=== PATIENT | male | born 1970 | race Caucasian/White ===

== ENCOUNTER 2019-01-10 08:38 | Inpatient (IN) | payer BC ==
[~2019-01-10] VITALS: Ht 182.9 cm; Wt 100.4 kg
[2019-01-10 09:01] VITALS: BP 177/119
[2019-01-10 09:36] LABS: BASO % 0 % (0-3); EOS % 0 % (0-3); HEMATOCRIT 43.2 % (39.0-53.0); HEMOGLOBIN 14.3 g/dL (13.0-17.5); LYMPH % 9 % (24-48); MEAN CORPUSCULAR HEMOGLOBIN 30 pg (25-35); MEAN CORPUSCULAR HGB CONC 33 g/dL (31-37); MEAN CORPUSCULAR VOLUME 90 fL (79-100); MONO # 0.5 x10^3/uL (0.0-1.1); MONO % 5 % (0-9); NEUT # 9.1 x10^3uL (1.8-7.7); NEUT % 86 % (31-73); PLATELET COUNT 244 x10^3/uL (140-400); RED BLOOD COUNT 4.79 x10^6/uL (4.30-5.70); RED CELL DISTRIBUTION WIDTH 14.8 % (11.5-14.5); WHITE BLOOD COUNT 10.6 x10^3/uL (4.0-11.0)
[2019-01-10 09:50] LABS: ALBUMIN 3.6 g/dL (3.4-5.0); ALBUMIN/GLOBULIN RATIO 1.5 (1.0-1.7); CALCIUM 8.5 mg/dL (8.5-10.1); CREATININE 1.1 mg/dL (0.7-1.3); GFR 70.9; TOTAL BILIRUBIN 0.8 mg/dL (0.2-1.0)
[2019-01-10] MEDS ORDERED: ENOXAPARIN 40 MG/0.4 ML SYRINGE. SQ SCH (10:00)
--- NOTE | 2019-01-10 10:05 | EKG ---
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
[2019-01-10] MEDS ORDERED: IOHEXOL 350 MG/ML 100 ML VIAL. IV ONE (10:15)
[2019-01-10 10:17] LABS: INFLUENZA A PATIENT NEGATIVE (NEGATIVE); INFLUENZA B PATIENT NEGATIVE (NEGATIVE)
[2019-01-10 11:36] VITALS: BP 164/124
--- NOTE | 2019-01-10 11:37 | RAD ---
CT ANGIOGRAPHY CHEST INDICATION: Dyspnea, elevated d-dimer. Comparison: None. TECHNIQUE: Following the uneventful administration of intravenous contrast, 100 cc Omnipaque 350, axial CT sections were obtained through the lungs and upper abdomen. Multiplanar reconstructions and MIP images were obtained. RS compliance statement: One or more of the following individualized dose reduction techniques were utilized for this examination: 1. Automated exposure control 2. Adjustment of the mA and/or kV according to patient size 3. Use of iterative reconstruction technique FINDINGS: Pulmonary vasculature: No evidence of pulmonary thromboembolic disease. Pulmonary trunk measures 30 mm in diameter. Lungs and Airways: Bibasilar dependent, subsegmental, and relaxation atelectasis. Symmetric interlobular septal thickening. No mass or consolidation. No abnormality of the central airways. Pleura: Moderate right greater than left pleural effusions. Heart and Mediastinum: The visualized thyroid is normal in size and attenuation. No axillary or supraclavicular lymphadenopathy. No mediastinal, hilar or retrocrural lymphadenopathy. Cardiomegaly. No pericardial effusion. The great vessels of the thorax are normal. Abdomen: Limited images through the upper abdomen show no abnormality of the visualized organs. Bones and Soft Tissues: The visualized bones and chest wall soft tissues are within normal limits. IMPRESSION: 1. No evidence of pulmonary thromboembolic disease. 2. Cardiomegaly and interstitial edema. 3. Moderate bilateral pleural effusions, slightly larger on the right. Electronically signed by: Jatin Russo MD (01/10/2019 11:34 AM) [facility]
[2019-01-10] MEDS: FUROSEMIDE 20 MG/2 ML VIAL IVP SCH (11:48)
[2019-01-10] MEDS: hydrALAZINE 25 MG TABLET PO SCH ×3 (11:49→19:46)
[2019-01-10 14:00] LABS: BACTERIA,URINE 0 /HPF (0-FEW); BILIRUBIN,URINE NEG (NEG); CLARITY,URINE CLEAR; COLOR,URINE AMBER; GLUCOSE,URINE NEG (NEG); NITRITE,URINE NEG (NEG); SQUAMOUS EPITHELIAL CELL,UR OCC /LPF; UROBILINOGEN,URINE 0.2 mg/dL (0.2 mg/dL)
[2019-01-10] MEDS: CARVEDILOL 3.125 MG TABLET PO SCH ×2 (14:02→17:00)
[2019-01-10 14:13] LABS: THYROID STIM HORMONE (TSH) 2.746 uIU/mL (0.358-3.740)
[2019-01-10 15:35] VITALS: BP 157/112
[2019-01-10] MEDS ORDERED: FLU VAX QS 2019-20 (36MOS+)/PF 0.5 ML SYRINGE. VAX IM ONE (16:00)
[2019-01-10] MEDS ORDERED: Influenza vaccine per PROTOCOL. MC ONE (16:00)
--- NOTE | 2019-01-10 16:11 | CARD ---
MR#: [id number] Date of Study: 01/10/2019 Ordering Physician: ANIYA HIGHTOWER, Referring Physician: ANIYA HIGHTOWER, Tech: Monica Goss RDCS APPROVED REPORT EXAM: Two-dimensional and M-mode echocardiogram with Doppler and color Doppler. Other Information Quality : GoodHR: 95bpm Rhythm : NSR INDICATION Dyspnea 2D DIMENSIONS RVDd3.4 (2.9-3.5cm)IVSd1.0 (0.7-1.1cm) Aortic Root(2D)3.6 (2.0-3.7cm)LVDd6.7 (3.9-5.9cm) PWd1.3 (0.7-1.1cm)LVDs6.3 (2.5-4.0cm) FS (%) 5.2 %SV26.1 ml LVEF(%)11.4 (>50%) M-Mode DIMENSIONS Left Atrium(MM)5.03 (2.5-4.0cm)Aortic Root3.62 (2.2-3.7cm) Aortic Valve AoV Peak Ganesh.108.4cm/sAoV VTI14.1cm AO Peak GR.4.7mmHgAO Mean GR.3mmHg JONY (VTI)3.07cm2 Mitral Valve MV E Bockaemr10.5cm/sMV E Peak Gr.81mmHg MV DECEL [id number] A Jltkrcwj38.4cm/s E/A Ratio3.3MV A Xkqkogpr33bd Tricuspid Valve TR P. Jwqgpepo086oi/sRAP FGCQDCVY44viKb TR Peak Gr.81joKaZWMR76jmMs LEFT VENTRICLE The Left Ventricle is moderately dilated. There is normal left ventricular wall thickness. The left v etricular systolic function is severely impaired. The Ejection Fraction is 10-15%. There is global hy pokinesis of the left ventricle. Transmitral Doppler flow pattern is Grade III-reversible restrictive diastolic dysfunction. RIGHT VENTRICLE The right ventricle is normal size. There is normal right ventricular wall thickness. Systolic functi on is mildly reduced. ATRIA The left atrium is moderately dilated. The right atrium is mildly dilated. The interatrial septum is intact with no evidence for an atrial septal defect or patent foramen ovale as noted on 2-D or Dopple r imaging. AORTIC VALVE The aortic valve is normal in structure and function. The aortic valve is trileaflet. Doppler and Col or Flow revealed trace aortic regurgitation. There is no significant aortic valvular stenosis. There is no aortic valvular vegetation. MITRAL VALVE The mitral valve is normal in structure and function. There is no evidence of mitral valve prolapse. There is no mitral valve stenosis. Doppler and Color-flow revealed mild to moderate mitral regurgitat ion. TRICUSPID VALVE The tricuspid valve is normal in structure and function. Doppler and Color Flow revealed mild tricusp id regurgitation. There is moderate pulmonary hypertension. The PA pressure was estimated at 65 mmHg. There is no tricuspid valve prolapse or vegetation. There is no tricuspid valve stenosis. PULMONIC VALVE The pulmonic valve is not well visualized. GREAT VESSELS The aortic root is normal in size. The ascending aorta is normal in size. The IVC is dilated. PERICARDIAL EFFUSION There is no evidence of significant pericardial effusion. Critical Notification Critical Value: No <Conclusion> The left vetricular systolic function is severely impaired. The Ejection Fraction is 10-15%. Mild to moderate mitral regurgitation. Mild tricuspid regurgitation. There is moderate pulmonary hypertension. The PA pressure was estimated at 65 mmHg. There is no evidence of significant pericardial effusion. Signed by : Dustin Eaton, Electronically Approved : 01/10/2019 16:11:39
[2019-01-10] MEDS: METOPROLOL SUCC 24HR ER 25 MG TAB.ER.24H. PO SCH (17:09)
--- NOTE | 2019-01-10 17:22 | PDOC2 ---
CONSULT Date of Admission DATE: 01/10/19 TIME: 17:22 Reason for Consult: Dyspnea Referring Physician: Dr. Paulson Chief Complaint Dyspnea Source: Chart review, Patient History of Present Illness 48 y/o male without any previous cardiac history presented with one week history of progressive dyspnea on exertion and paroxysmal nocturnal dyspnea. He denied any chest pain, palpitations or syncope. Symptoms improved with Lasix given in ED Cardiovascular: No pertinent hx Family History Negative for premature CAD Social History Patient admitted to heavy alcohol use till Mar 2018. He denied any smoking or drug use Current Medications Current Medications Hydralazine HCl (Apresoline) 25 mg TID PO Last administered on 01/10/19 14:01; Start 01/10/19 at 10:00 Enoxaparin Sodium (Lovenox 40mg Syringe) 40 mg Q24H SQ Last administered on 01/10/19 11:49; Start 01/10/19 at 10:00 Furosemide (Lasix) 20 mg DAILY IVP Last administered on 01/10/19 11:48; Start 01/10/19 at 10:00 Iohexol (Omnipaque 350 Mg/ml) 100 ml 1X ONCE IV Last administered on 01/10/19 10:53; Start 01/10/19 at 10:15; Stop 01/10/19 at 10:21; Status DC Info (FLU VACCINE per PROTOCOL) 1 ea PRN 1X ONCE MC ; Start 01/10/19 at 16:00; Stop 01/10/19 at 12:56; Status DC Influenza Virus Vaccine Quadrival (Afluria Quad 2019-20 (3yr Up) Syringe) 0.5 ml ONCE ONCE VAX IM Last administered on 01/10/19 17:18; Start 01/10/19 at 16:00; Stop 01/10/19 at 16:01; Status DC Carvedilol (Coreg) 3.125 mg BIDWMEALS PO Last administered on 01/10/19 14:02; Start 01/10/19 at 13:30 Metoprolol Succinate (Toprol Xl) 50 mg DAILY PO Last administered on 01/10/19 17:09; Start 01/10/19 at 16:00 Active Scripts Active Reported No Known Medications Prior To Admisstion (Info) Each 1 Each MC 6XDAY 30 Days Allergies: Coded Allergies: No Known Drug Allergies (Unverified , 01/10/19) PSYCHOLOGICAL ROS: No: Hallucinations Eyes: No: Loss of vision HEENT: No: Epistaxis Respiratory: YES: Shortness of breath; No: Hemoptysis Cardiovascular: No: Chest Pain Genitourinary: No: Henaturia Neurological: No: Seizures Skin: No: Rash General: Alert HEENT: Atraumatic, PERRLA Lungs: Clear to auscultation Heart: Regular rate Abdomen: Soft Extremities: No edema Psych/Mental Status: Mood NL VITALS Vital Signs Date Time Temp Pulse Resp B/P (MAP) Pulse Ox O2 Delivery O2 Flow Rate FiO2 01/10/19 17:09 99 157/112 01/10/19 15:35 98.5 20 95 Room Air Labs Laboratory Tests Test 01/10/19 09:18 01/10/19 12:00 01/10/19 15:25 White Blood Count 10.6 x10^3/uL (4.0-11.0) Red Blood Count 4.79 x10^6/uL (4.30-5.70) Hemoglobin 14.3 g/dL (13.0-17.5) Hematocrit 43.2 % (39.0-53.0) Mean Corpuscular Volume 90 fL (79-100) Mean Corpuscular Hemoglobin 30 pg (25-35) Mean Corpuscular Hemoglobin Concent 33 g/dL (31-37) Red Cell Distribution Width 14.8 % (11.5-14.5) Platelet Count 244 x10^3/uL (140-400) Neutrophils (%) (Auto) 86 % (31-73) Lymphocytes (%) (Auto) 9 % (24-48) Monocytes (%) (Auto) 5 % (0-9) Eosinophils (%) (Auto) 0 % (0-3) Basophils (%) (Auto) 0 % (0-3) Neutrophils # (Auto) 9.1 x10^3uL (1.8-7.7) Lymphocytes # (Auto) 1.0 x10^3/uL (1.0-4.8) Monocytes # (Auto) 0.5 x10^3/uL (0.0-1.1) Eosinophils # (Auto) 0.0 x10^3/uL (0.0-0.7) Basophils # (Auto) 0.0 x10^3/uL (0.0-0.2) D-Dimer (Ngozi) 2.05 mg/L (0.00-0.50) Sodium Level 142 mmol/L (136-145) Potassium Level 4.0 mmol/L (3.5-5.1) Chloride Level 107 mmol/L (98-107) Carbon Dioxide Level 25 mmol/L (21-32) Anion Gap 10 (6-14) Blood Urea Nitrogen 13 mg/dL (8-26) Creatinine 1.1 mg/dL (0.7-1.3) Estimated GFR (Cockcroft-Gault) 70.9 BUN/Creatinine Ratio 12 (6-20) Glucose Level 124 mg/dL (70-99) Lactic Acid Level 1.7 mmol/L (0.4-2.0) Calcium Level 8.5 mg/dL (8.5-10.1) Total Bilirubin 0.8 mg/dL (0.2-1.0) Aspartate Amino Transf (AST/SGOT) 29 U/L (15-37) Alanine Aminotransferase (ALT/SGPT) 73 U/L (16-63) Alkaline Phosphatase 74 U/L (46-116) Creatine Kinase 140 U/L (39-308) Troponin I Quantitative 0.033 ng/mL (0-0.055) 0.049 ng/mL (0-0.055) MS-Ljw-P-Type Natriuretic Peptide 6324 pg/mL (0-124) Total Protein 6.0 g/dL (6.4-8.2) Albumin 3.6 g/dL (3.4-5.0) Albumin/Globulin Ratio 1.5 (1.0-1.7) Triglycerides Level 64 mg/dL (0-150) Cholesterol Level 128 mg/dL (0-200) LDL Cholesterol, Calculated 86 mg/dL (0-100) VLDL Cholesterol, Calculated 12 mg/dL (0-40) Non-HDL Cholesterol Calculated 98 mg/dL (0-129) HDL Cholesterol 30 mg/dL (40-60) Cholesterol/HDL Ratio 4.0 Thyroid Stimulating Hormone (TSH) 2.746 uIU/mL (0.358-3.740) Influenza Type A (Rapid) Negative (NEGATIVE) Influenza Type B (Rapid) Negative (NEGATIVE) Urine Collection Type Unknown Urine Color Angelica Urine Clarity Clear Urine pH 6.0 Urine Specific [place] >=1.030 Urine Protein 100 mg/dl (NEG-TRACE) Urine Glucose (UA) Neg mg/dL (NEG) Urine Ketones (Stick) Neg mg/dL (NEG) Urine Blood Neg (NEG) Urine Nitrite Neg (NEG) Urine Bilirubin Neg (NEG) Urine Urobilinogen Dipstick 0.2 mg/dL (0.2 mg/dL) Urine Leukocyte Esterase Neg (NEG) Urine RBC 1-2 /HPF (0-2) Urine WBC 1-4 /HPF (0-4) Urine Squamous Epithelial Cells Occ /LPF Urine Bacteria 0 /HPF (0-FEW) Urine Mucus Mod /LPF Assessment/Plan 1. Acute on chronic systolic HF: 2D echo showed EF 10-15%. Symptoms improving with diuresis with Lasix. Continue coreg and start Lisinopril. Plan cardiac cath possibly sunday to rule out significant CAD as a cause of his cardiomyopathy 2. Accelerated HTN: better controlled since admission but still elevated. Start lisinopril as stated above Thank you for your consultation CAROL MARTIN MD Jan 10, 2019 17:22
[2019-01-10 19:29] VITALS: BP 157/108
[2019-01-10] MEDS ORDERED: ZOLPIDEM 5 MG TABLET. PO PRN (20:30)
[2019-01-10] MEDS: LORazepam 0.5 MG TABLET PO PRN (21:02)
[2019-01-10 23:15] VITALS: BP 154/111
[2019-01-11 05:43] VITALS: BP 133/55
[2019-01-11 06:50] LABS: BASO % 0 % (0-3); EOS % 0 % (0-3); HEMATOCRIT 40.7 % (39.0-53.0); HEMOGLOBIN 13.4 g/dL (13.0-17.5); LYMPH % 8 % (24-48); MEAN CORPUSCULAR HEMOGLOBIN 30 pg (25-35); MEAN CORPUSCULAR HGB CONC 33 g/dL (31-37); MEAN CORPUSCULAR VOLUME 90 fL (79-100); MONO # 0.7 x10^3/uL (0.0-1.1); MONO % 6 % (0-9); NEUT # 10.7 x10^3uL (1.8-7.7); NEUT % 86 % (31-73); PLATELET COUNT 260 x10^3/uL (140-400); RED BLOOD COUNT 4.52 x10^6/uL (4.30-5.70); RED CELL DISTRIBUTION WIDTH 14.8 % (11.5-14.5); WHITE BLOOD COUNT 12.5 x10^3/uL (4.0-11.0)
[2019-01-11 06:55] LABS: CALCIUM 8.6 mg/dL (8.5-10.1); CREATININE 1.2 mg/dL (0.7-1.3); GFR 64.1; POTASSIUM 4.4 mmol/L (3.5-5.1)
[2019-01-11] MEDS: LORazepam 0.5 MG TABLET PO PRN (07:28)
[2019-01-11] MEDS: hydrALAZINE 25 MG TABLET PO SCH (07:28)
[2019-01-11] MEDS: FUROSEMIDE 20 MG/2 ML VIAL IVP SCH (07:29)
[2019-01-11] MEDS: METOPROLOL SUCC 24HR ER 25 MG TAB.ER.24H. PO SCH (07:29)
[2019-01-11] MEDS: CARVEDILOL 3.125 MG TABLET PO SCH (07:30)
[2019-01-11] MEDS ORDERED: LISINOPRIL 10 MG TABLET PO SCH (09:00)
[2019-01-11 10:26] VITALS: BP 123/82
[2019-01-11] MEDS ORDERED: FUROSEMIDE 20 MG/2 ML VIAL IVP ONE (10:30)
--- NOTE | 2019-01-11 10:56 | EKG ---
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
--- NOTE | 2019-01-11 20:26 | DS ---
DATE OF DISCHARGE: 01/11/2019 HOSPITAL COURSE: A 48-year-old gentleman who was seen initially in the office yesterday with increased shortness of breath and was having heart failure. He was admitted to the hospital, placed on cardiac monitoring. The patient at first was diuresed. Chest x-ray showed pulmonary edema and the CTA was done because of a positive D-dimer that was negative for clot, but did show fluid retention consistent with CHF. The patient was attempted to be transferred down to , but the family wanted to consult right there at the hospital and Dr. Eaton happened to be there, so that was not fulfilled on the former. Dr. Eaton did see the patient, made some minor adjustments, adding lisinopril to already the Lasix, hydralazine and metoprolol or Coreg that was given to the patient for CHF per protocol as well as he being on Lovenox. Dr. Eaton added lisinopril. Dr. Eaton felt the patient was stable enough and made good progress. We got his blood pressure down, which was elevated initially when he came in, and he had a blood pressure in excess noted in the chart 177/120, respiratory rate 20, pulse 107 and when he was discharged was down to 123/82, pulse of 80. He did have a low-grade temperature. Rocephin was attempted to be started on him. He was on room air at 94%. In any case, the patient has noted Dr. Eaton felt this being Sunday he could wait until Sunday for transfer for possibility of a heart catheterization. Family demanded that he be transferred today down to and another attempt was made to call the transfer team; however, they wanted him transferred immediately and the patient was reviewed. He said he did not feel good. He denied chest pain, did have shortness of breath, and we put him on 2 liters of oxygen. We called EMS per family's request and felt safer to be transferred to the ER rather than try to take him down by private vehicle like they had wanted to do in the first place to take him out and just transfer via private vehicle. The CTA showed no evidence of PE. There was some mild cardiomegaly and interstitial edema, moderate bilateral pleural effusions. The patient's labs are basically stable. His white count had gone up slightly to 12.5, no differential on that and the patient's blood sugar was 129. His cholesterol was basically stable. Thyroid was normal. Cardiac enzymes showed a 0.03, which was not likely according to this lab of any heart damage. His BNP of course was elevated. He was placed on a typical protocol of the Lasix IV as well as beta blockers, hydralazine and BRENDEN inhibitors. The patient had good diuresis with the Lasix; however, as noted, the patient with EMS responded in a very timely manner and when he was last examined in the morning of discharge, his lungs were diminished, but clear. The CVR exam was regular sinus rhythm. He did look flushed, but he did feel short of breath. His echocardiogram showed 15-20% ejection fraction. The patient had not seen a physician appears at least for the last 2-1/2 years or so. In any case, the patient was stable, he was taken via EMS. Contact with the ER was performed. We faxed down all the records we had to them and actually discussed the situation with the ER physician. At time of discharge, the patient was in stable condition. Note was made of the consultation by Dr. Eaton on the day of admission and impression -- acute congestive heart failure, possible cardiomyopathy, dyspnea, hyperglycemia, low-grade temperature. The patient was transferred via EMS to the Emergency Room for further evaluation at a larger institution considering that we did not have the demand of the family to be transferred there instead of [place]. DIAZ ASIF MD DR: RADHA/sultana JOB#: [id number] / [id number]
== END 2019-01-11 11:00 | disposition short-term general hospital (02) | DRG 293 ==
LOC: 1 SOUTH 08:38
PROVIDERS: ADMIT Family Medicine; ATTEND Family Medicine
DX: I11.0 Hypertensive heart disease with heart failure (principal); I50.23 Acute on chronic systolic (congestive) heart failure; I42.9 Cardiomyopathy, unspecified; R73.9 Hyperglycemia, unspecified
CPT/HCPCS: 36415; 71275; 80048; 80053; 80061; 81001; 82550; 83605; 83880; 84145; 84443; 84484; 85025; 85379; 87070; 87205; 87804; 90471; 90686; 93005; 93306; J1650; Q9967

== ENCOUNTER 2021-02-18 07:33 | Emergency (ER) | payer BC ==
[~2021-02-18] VITALS: Ht 182.9 cm; Wt 97.7 kg
--- NOTE | 2021-02-18 08:16 | PHYS DOC ---
Past History Past Medical History: CHF Past Surgical History: No Surgical History Alcohol Use: None Adult General Chief Complaint Chief Complaint: NEAR SYCOPE [facility] HPI Patient is a 51-year-old male presenting via EMS for syncopal episode. 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 States he started having vision changes and was lowered down to the ground. States he remembers most of the episode but is concerned that he potentially lost consciousness. Witnesses at [employer] denying any trauma or head injury, confirm that patient was indeed lowered down to the ground and EMS was subsequently called. On arrival, patient was found to be hemodynamically stable, had an unremarkable fingerstick glucose, and AOx3. He was subsequently transported to our facility for evaluation. On arrival to ER, patient has no complaints. States he has been at baseline health without any recent medication changes but does admit to recent URI symptoms. He is fully vaccinated against COVID-19 but is concerned given symptoms of rhinorrhea, postnasal drip and a dry nonproductive cough. Patient's history most significant for heart failure reduced ejection fraction due to high blood pressure, he is on Entresto and currently managed by Dr. Jiménez at [facility]. States he has had episodes like this in the past due to fluid imbalance Review of Systems Review of Systems Fourteen body systems of review of systems have been reviewed. See HPI for pertinent positives and negative responses, other mcmanus all other systems are negative, non-pertinent or non-contributory Allergies Allergies Allergies Coded Allergies Type Severity Reaction Last Updated Verified No Known Drug Allergies 02/18/21 No Physical Exam Physical Exam Constitutional: Well developed, well nourished, no acute distress, non-toxic appearance. [] HENT: Normocephalic, atraumatic, bilateral external ears normal, oropharynx moist, no oral exudates, nose normal. [] Eyes: PERRLA, EOMI, conjunctiva normal, no discharge. [] Neck: Normal range of motion, no tenderness, supple, no stridor. [] Cardiovascular:Heart rate regular rhythm, no murmur [] Lungs & Thorax: Bilateral breath sounds clear to auscultation [] Abdomen: Bowel sounds normal, soft, no tenderness, no masses, no pulsatile masses. [] Skin: Warm, dry, no erythema, no rash. [] Back: No tenderness, no CVA tenderness. [] Extremities: No tenderness, no cyanosis, no clubbing, ROM intact, no edema. [] Neurologic: Alert and oriented X 3, normal motor function, normal sensory function, no focal deficits noted. [] Psychologic: Affect normal, judgement normal, mood normal. [] Current Patient Data Vital Signs Vital Signs Date Time Temp Pulse Resp B/P (MAP) Pulse Ox O2 Delivery O2 Flow Rate FiO2 02/18/21 07:41 98.0 77 18 129/78 (95) 94 Room Air Lab Results Laboratory Tests Test 02/18/21 07:53 02/18/21 08:14 02/18/21 08:20 Glucose (Fingerstick) 132 mg/dL Coronavirus (COVID-19)(PCR) Positive White Blood Count 8.4 x10^3/uL Red Blood Count 4.88 x10^6/uL Hemoglobin 15.1 g/dL Hematocrit 44.5 % Mean Corpuscular Volume 91 fL Mean Corpuscular Hemoglobin 31 pg Mean Corpuscular Hemoglobin Concent 34 g/dL Red Cell Distribution Width 13.2 % Platelet Count 142 x10^3/uL Neutrophils (%) (Auto) 84 % Lymphocytes (%) (Auto) 7 % Monocytes (%) (Auto) 9 % Eosinophils (%) (Auto) 0 % Basophils (%) (Auto) 0 % Neutrophils # (Auto) 7.1 x10^3uL Lymphocytes # (Auto) 0.5 x10^3/uL Monocytes # (Auto) 0.7 x10^3/uL Eosinophils # (Auto) 0.0 x10^3/uL Basophils # (Auto) 0.0 x10^3/uL Sodium Level 141 mmol/L Potassium Level 4.3 mmol/L Chloride Level 105 mmol/L Carbon Dioxide Level 26 mmol/L Anion Gap 10 Blood Urea Nitrogen 18 mg/dL Creatinine 1.1 mg/dL Estimated GFR (Cockcroft-Gault) 70.0 Glucose Level 118 mg/dL Calcium Level 8.1 mg/dL Troponin I High Sensitivity 7 ng/L RE-Pro-X-Type Natriuretic Peptide 42 pg/mL EKG EKG EKG ordered and interpreted by myself at 0754 hrs. as sinus rhythm at 81 bpm, unremarkable intervals, no axis deviation, T wave inversion noted in lead aVF, no STEMI Radiology/Procedures Radiology/Procedures XR CHEST 1V History: Reason: syncope / Spl. Instructions: / History: Comparison: None. Findings: Minimal left basilar linear atelectasis. No consolidation or pleural effusion. Normal heart size. No pneumothorax. Impression: 1. No acute cardiopulmonary process. Electronically signed by: Chucky Beltran DO (02/18/2021 8:27 AM) [id number] Heart Score C/O Chest Pain: No HEART Score for Chest Pain: HEART Score for Chest Pain Response (Comments) Value History Slighlty/Non-Suspicious 0 ECG Normal 0 Age >45 - < 65 1 Risk Factors >3 Risk Factors or Hx CAD 2 Total 3 Risk Factors: Risk Factors: DM, Current or recent (<one month) smoker, HTN, HLP, family history of CAD, obesity. Risk Scores: Risk Factors: DM, Current or recent (<one month) smoker, HTN, HLP, family history of CAD, obesity. Course & Med Decision Making Course & Med Decision Making ABCs unremarkable HPI physical exam and comprehensive ER work-up nonconcerning for any emergent or surgical issues With that said, I discussed elevated heart score and patient's numerous comorbid conditions, could not definitively say this is not an acute presentation more concerning pathology without more time. Admission recommended but deferred by patient Given URI symptoms, patient despite being vaccinated for COVID-19 was tested with PCR pending. Self quarantine and supportive care guidance given Strict return precautions discussed at length with good understanding by patient and spouse at bedside, all questions and concerns addressed prior to ER departure Dragon Disclaimer Dragon Disclaimer This electronic medical record was generated, in whole or in part, using a voice recognition dictation system. Departure Departure: Impression: Primary Impression: Syncope Additional Impressions: Person under investigation for COVID-19 Chronic HFrEF (heart failure with reduced ejection fraction) Disposition: HOME / SELF CARE / HOMELESS Condition: STABLE Referrals: DIAZ ASIF MD (PCP) Additional Instructions: You were seen for syncope. It is unclear what caused your symptoms but your initial evaluation did not show any concerning symptoms or features. In addition, you voice symptoms that were concerning for possible infection with COVID-19. Your physical exam was reassuring. Your chest x-ray was normal. We tested you for COVID-19 but this test does not come back for 1 to 2 days. In the meantime you need to quarantine yourself at home away from all other individuals, especially those who are elderly or have any other chronic health issues or an immunocompromised status. You should follow up with your primary care doctor/senior manager in a few days to have your labs repeated and to be evaluated again. You should return to the ED if you develop worsening cough, shortness of breath, chest pain, or any other new or concerning symptoms. Problem Qualifiers LUIS EDUARDO GANDHI DO Feb 18, 2021 08:16
--- NOTE | 2021-02-18 08:29 | RAD ---
XR CHEST 1V History: Reason: syncope / Spl. Instructions: / History: Comparison: None. Findings: Minimal left basilar linear atelectasis. No consolidation or pleural effusion. Normal heart size. No pneumothorax. Impression: 1. No acute cardiopulmonary process. Electronically signed by: Chucky Beltran DO (02/18/2021 8:27 AM) [id number]
[2021-02-18 08:36] LABS: BASO % 0 % (0-3); EOS % 0 % (0-3); HEMATOCRIT 44.5 % (39.0-53.0); HEMOGLOBIN 15.1 g/dL (13.0-17.5); LYMPH # 0.5 x10^3/uL (1.0-4.8); LYMPH % 7 % (24-48); MEAN CORPUSCULAR HEMOGLOBIN 31 pg (25-35); MEAN CORPUSCULAR HGB CONC 34 g/dL (31-37); MEAN CORPUSCULAR VOLUME 91 fL (79-100); MONO # 0.7 x10^3/uL (0.0-1.1); MONO % 9 % (0-9); NEUT # 7.1 x10^3uL (1.8-7.7); NEUT % 84 % (31-73); PLATELET COUNT 142 x10^3/uL (140-400); RED BLOOD COUNT 4.88 x10^6/uL (4.30-5.70); RED CELL DISTRIBUTION WIDTH 13.2 % (11.5-14.5); WHITE BLOOD COUNT 8.4 x10^3/uL (4.0-11.0)
[2021-02-18 08:45] LABS: CALCIUM 8.1 mg/dL (8.5-10.1); CREATININE 1.1 mg/dL (0.7-1.3); POTASSIUM 4.3 mmol/L (3.5-5.1)
--- NOTE | 2021-02-18 09:09 | EKG ---
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
[2021-02-18 09:31] VITALS: BP 115/58
== END 2021-02-18 09:33 | disposition home or self-care (01) ==
LOC: ER 07:33
DX: U07.1 COVID-19 (principal); R55 Syncope and collapse; I50.9 Heart failure, unspecified
CPT/HCPCS: 36415; 71045; 80048; 82947; 83880; 84484; 85025; 93005; 99285; C9803; U0003